=== PATIENT | male | born 1990 | race Caucasian/White ===

== ENCOUNTER 2022-07-03 13:14 | Emergency (ER) | payer BC ==
[2022-07-03] MEDS ORDERED: Bacitracin Oint 1 GM U/D Packet TOP ONE (14:35)
[2022-07-03] MEDS ORDERED: Lidocaine 1% 5 ML VIAL INJECT ONE (14:35)
[2022-07-03] MEDS ORDERED: Diphtheria,Pertussis(Acell),Tetanus Vaccine 0.5 ML Syringe IM ONE (15:01)
== END 2022-07-03 15:16 | disposition home or self-care (01) ==
LOC: JP.ED 13:14
DX: S61.212A Laceration without foreign body of right middle finger without damage to nail, initial encounter (principal); Z23 Encounter for immunization; Z88.0 Allergy status to penicillin; W26.0XXA Contact with knife, initial encounter
CPT/HCPCS: 12001; 90471; 90715; 99282-25